=== PATIENT | male | born 1940 | race Caucasian/White ===

== ENCOUNTER 2020-02-23 09:09 | Observation (INO) | payer OTHER ==
[~2020-02-23] VITALS: Ht 185.4 cm; Wt 102.1 kg
[~2020-02-23 09:09] MED LIST: ALEVE220 M1 PO; ASPIR 8181 MG PO; EFFIENT10 MG PO; FISH OIL 1,001000 M2 PO; IMDUR 30 MG TAB30 M1 PO; LOPRESSOR25 PO; NITROSTAT0.3 MG SUBLING; OMEPRAZOLE20 M2 PO; OMEPRAZOLE40 MG PO; RAMIPRIL10 MG PO; SLEEP AID25 MG PO; VITAMIN B-12500 MCG PO; VITAMIN D-32000 UNIT PO; VITAMINC500 PO; VYTORIN 10-401 EACH PO
[2020-02-23 10:06] VITALS: BP 154/70
[2020-02-23 10:08] LABS: HEMATOCRIT 40.4 % (42.0-52.0); HEMOGLOBIN 13.8 gm/dL (14.0-18.0); MCH 30.6 pg (26.0-34.0); MCHC 34.1 g/dL (28.0-37.0); MCV 89.7 fL (80.0-100.0); MPV 6.9 fl. (7.2-11.1); RBC 4.51 mil/uL (4.50-6.00); RDW-CV 12.8 % (10.5-14.5); WBC 6.2 thou/uL (4.0-11.0)
[2020-02-23 10:22] LABS: ANION GAP 11 mmol/L (7-16); BUN 18 mg/dL (7-18); CALCIUM 8.2 mg/dL (8.5-10.1); CHLORIDE 106 mmol/L (98-107); CO2 25 mmol/L (21-32); CREATININE 1.1 mg/dL (0.6-1.3); GLUCOSE 118 mg/dL (70-99); POTASSIUM 4.2 mmol/L (3.5-5.1); SODIUM 142 mmol/L (136-145)
[2020-02-23] MEDS ORDERED: VITAMIN D31250 MC1 PO (10:23)
[2020-02-23] MEDS ORDERED: ZETIA10 MG PO (10:24)
[2020-02-23 10:26] LABS: ALBUMIN 3.7 g/dL (3.4-5.0); ALKALINE PHOSPHATASE 79 U/L (46-116); CHOLESTEROL 159 mg/dL (<200); HDL CHOLESTEROL 63 mg/dL (>40); LDL CHOLESTEROL 86 mg/dL (<100); SGOT 21 U/L (15-37); SGPT 40 U/L (30-65); TC:HDL 2.5 Ratio (Not establshd); TOTAL BILIRUBIN 0.5 mg/dL (<0.1-1.0); TOTAL PROTEIN 7.2 g/dL (6.4-8.2); TRIGLYCERIDE 51 mg/dL (<150); VLDL 10 mg/dL (<40)
[2020-02-23] MEDS ORDERED: NITROSTAT0.4 M1 PO (10:27)
[2020-02-23] MEDS ORDERED: LIPITOR40 MG PO (10:29)
[2020-02-23] MEDS ORDERED: CLARITIN10 M3 PO (10:30)
[2020-02-23 10:46] LABS: SERUM ASSESSMENT Clear
[2020-02-23 10:47] LABS: APTT 26.7 Seconds (25.0-31.3); PROTIME 10.4 Seconds (9.20-11.50)
[2020-02-23 16:05] VITALS: BP 154/70
--- NOTE | 2020-02-23 17:12 | EKG ---
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
--- NOTE | 2020-02-23 17:16 | EKG ---
[place] [address] ELECTROCARDIOGRAM REPORT Name: ELKIN MATTHEW Room: [address] M.R.#: [id number] Admission: 02/23/20 Attend Phys: Roxane Andrade Discharge: Date of : 44 Date of Service: 02/23/20 1516 Report #: [id number] THIS REPORT FOR: //name// [facility] Test Date: 2020-02-23 Test Time: 15:16:20 Pat Name: ELKIN MATTHEW Department: Room: [address] Gender: M Mental Health Aide: CS : 1940 Requested By: Amari Xavier Order Number: [id number] Daniel MD: Amari Xavier Measurements Intervals [place] Rate: 65 P: 72 [place]: 167 QRS: -86 QRSD: 145 T: 58 QT: 468 QTc: 487 Interpretive Statements Sinus rhythm Supraventricular bigeminy RBBB and LAFB Compared to ECG 02/23/2020 10:44:04 No significant changes Electronically Signed On 02-23-2020 17:16:03 CDT by Amari Xavier [email or web address] <ELECTRONICALLY SIGNED> By: Amari Xavier MD, [facility] 02/23/20 1716 1516 1516 Amari Xavier MD, [facility] /EPI
[2020-02-23 19:15] VITALS: BP 121/76
[2020-02-24 00:47] VITALS: BP 145/73
[2020-02-24 04:21] VITALS: BP 141/75
[2020-02-24 05:27] LABS: HEMATOCRIT 37.7 % (42.0-52.0); HEMOGLOBIN 13.2 gm/dL (14.0-18.0); MCH 30.7 pg (26.0-34.0); MCHC 34.9 g/dL (28.0-37.0); MPV 6.9 fl. (7.2-11.1); RBC 4.29 mil/uL (4.50-6.00); RDW-CV 12.7 % (10.5-14.5); WBC 6.9 thou/uL (4.0-11.0)
[2020-02-24 05:50] LABS: ALBUMIN 3.2 g/dL (3.4-5.0); CALCIUM 8.1 mg/dL (8.5-10.1); CREATININE 0.9 mg/dL (0.6-1.3); POTASSIUM 3.7 mmol/L (3.5-5.1); TOTAL BILIRUBIN 0.5 mg/dL (<0.1-1.0); TOTAL PROTEIN 6.3 g/dL (6.4-8.2)
[2020-02-24 05:51] LABS: TROPONIN-I LEVEL 1.23 ng/mL (<0.06)
[2020-02-24 07:49] VITALS: BP 141/65
[2020-02-24] MEDS ORDERED: EFFIENT10 MG PO (08:27)
[2020-02-24 09:41] VITALS: BP 141/65
--- NOTE | 2020-02-24 14:00 | CARD ---
[address] [address] CARDIAC CATH REPORT Name: ELKIN MATTHEW Room: [address] Kari M.R.#: [id number] Admission: 02/23/20 Attend Phys: Amari Xavier MD, Discharge: 02/24/20 Date of : 44 Report #: [id number] THIS REPORT FOR: //name// cc: Juanpablo Camilo MD, William MD ~ APPROVED REPORT Study performed: 02/23/2020 11:56:26 Patient Details Patient Status: In-Patient Room #: The patient is a 79 year-old male Event Personnel Amari Xavier User Interface Artist, Melyssa Mckeon RN Double Reamer Operator, Arleen Baron RTR Monitor, Kadi Ayers RTR Scrub Procedures Performed Art Access - R femoral artery, Left Heart Cath w/or w/o Coronaries LHC, TAMERA w/Atherectomy Single RCA DESATH, Hemostasis w/ Angioseal Indication Unstable angina Risk Factors Hypercholesterolemia, Hypertension Previous Procedures/Diagnoses Previous PCI Admission/Lab Medications/Medications given during procedure Nitroglycerin IC 200 mcg, Nitroglycerin IC 150 mcg, Angiomax IV 15 ml, Angiomax Drip IV 35.77 ml per hr, Effient PO 60 mg, Aspirin PO 162 mg Procedure Narrative The patient was brought electively to the Cardiac Catheterization Laboratory and was prepped and draped in a sterile manner. The right femoral groin area was infiltrated with 2% Lidocaine subcutaneous anesthesia. A 6F [place] sheath was inserted into the right femoral artery. Coronary angiography was performed using coronary diagnostic catheters. The right coronary system was [place] [address] CARDIAC CATH REPORT Name: ELKIN MATTHEW Room: [address] Sav#: [id number] Admission: 02/23/20 Attend Phys: Amari Xavier MD, Discharge: 02/24/20 Date of : 44 Report #: [id number] a 6F JR4 catheter. The left coronary system was accessed and visualized with a 6F JL4 catheter. The left ventricle was accessed and visualized with a 5F Straight Pigtail catheter. Left ventricular/Aortic Valve gradient assessed via catheter pullback. Left ventriculogram was performed in DIAL projection. Pre-demployment femoral angiogram was performed . Closure device was deployed with a 6 Fr Angioseal STS. The patient tolerated the procedure well and there were no complications associated with the procedure. There was no hematoma. Intraoperative Conscious Sedation Sedation start time: 12:25 Case end Time: 14:09 Fentanyl 75 mcg Versed 4 mg Fluoro Time: 33.4 minutes Dose: DAP 822190 cGycm2 4832 mGy Contrast Type and Amount: Visipaque 470 ml Diagnostic Cath Left Main 0% narrowing LAD 30% mid and distal LAD narrowing Circumflex 30% mid circumflex narrowing Right Coronary Large dominant vessel with 75% tubular proximal stenosis and 80% focal distal right coronary stenosis within a previously deployed stent just beyond the acute margin Left Ventriculography The left ventricle is normal in size with normal contractility. The left ventricular ejection fraction is estimated to be 55-60%. Left ventricular wall motion abnormalities are not present. There is no mitral insufficiency. Hemodynamics The aortic pressure is 140/68 mmHg with a mean of 95 mmHg. The left ventricular pressure is 141/1 mmHg with a mean of mmHg. The left ventricular end diastolic pressure is 18 mmHg. PCI Technique Lesion Anticoagulation was achieved with Angiomax. Patient was preloaded with Angiomax IV 15 ml. Percutaneous coronary intervention was performed on the proximal right coronary artery. The lesion stenosis prior to intervention was 75% with ANDREW 3 flow. A 6F JR 4.0 Guide Catheter was used to engage the right ostium. A BMW 190cm Interventional Guidewire was [place] [address] CARDIAC CATH REPORT Name: VIPULELKIN SMITH Room: [address]#: [id number] Admission: 02/23/20 Attend Phys: Amari Xavier MD, Discharge: 02/24/20 Date of : 44 Report #: [id number] BALLOON DILATION A Balloon catheter Trek RX 2.75 X 15 was inserted and inflated up to 12.00atm for 13seconds. Additional Inflation: 12.00atm for 11seconds. STENT DEPLOYMENT A drug-eluting stent Xience Adeline 3.23L64vn was inserted and inflated up to 14.00atm for 15seconds. Additional Inflation: 20.00atm for 14seconds. POST STENT DEPLOYMENT BALLOON DILATION A Balloon catheter NC Euphora 3.5x12 was inserted and inflated up to 13.00atm for 9seconds. Additional Inflation: 18.00atm for 15seconds. Additional Inflation: 20.00atm for 11seconds. Additional inflations for 20 efrain and 22 efrain. Final angiography reveals 10 % stenosis with ANDREW 3 flow. PCI Technique Lesion 2 Percutaneous Coronary Intervention was performed on the distal right coronary artery. Patient was preloaded with Angiomax IV 15 ml. The lesion stenosis prior to intervention was 80% with ANDREW 3 flow. A 6F JR 4.0 Guide Catheter was used to engage the right ostium. A BMW 190cm Interventional Guidewire was used to cross the lesion. Balloon Dilation A Balloon catheter NC Euphora 3.0 x 8 was inserted and inflated up to 10.00atm for 16seconds. Additional Inflation: 16.00atm for 12seconds. Additional Inflation: 18.00atm for 19seconds. A cutting balloon athrectomy catheter AngioSculpt PTCA 3.0 x 10mm was inserted and inflated up to 8 efrain for 16 seconds. Additional inflations: 10 efrain for 14 seconds; 11 efrain for 14 seconds. Stent Deployment A drug-eluting stent [place] RX Stent 3.0X12mm was inserted and inflated up to 10.00atm for 24seconds. Additional Inflation: 14.00atm for 13seconds. Additional Inflation: 15.00atm for 11seconds. Final angiography reveals 10 % stenosis with ANDREW flow. Conclusion 1. Significant coronary artery disease characterized by the following: A 75% tubular narrowing of the proximal portion of the dominant right [address] [address] CARDIAC CATH REPORT Name: ELKIN MATTHEW Room: [address] M.RCarmen#: [id number] Admission: 02/23/20 Attend Phys: Amari Xavier MD, Discharge: 02/24/20 Date of : 44 Report #: [id number] coronary artery with 80% focal distal right coronary in-stent restenosis just beyond the acute margin B 30% mid and distal LAD narrowings C 30% mid circumflex narrowing, this being a nondominant vessel 2. Normal left ventricular systolic function, estimated ejection fraction being 55 - 60% 3. Modest elevation of left ventricular end-diastolic pressure rest 4. Successful atherotomy/atherectomy with stenting of the distal right coronary artery at the site of 80% stenosis within a previously deployed stent with 10% residual narrowing 5. Successful PCI with deployment of drug-eluting stent at the site of 75% tubular proximal right coronary stenosis with 10% residual narrowing and ANDREW-3 flow the distal vessel Recommendations Cardiac Risk Reduction Program Aggressive Medical Therapy Medications Administered Aspirin (any) Prasugrel Diagnostic Cath Approved by: Amari Xavier MD Date/Time: 02/24/2020 13:58:25 <ELECTRONICALLY SIGNED> By: Amari Xavier MD, FACC 02/24/20 1400 1400 1400Amari Xavier MD, FACC /INF
--- NOTE | 2020-02-24 16:17 | EKG ---
[place] [address] ELECTROCARDIOGRAM REPORT Name: ELKIN MATTHEW Room: [address] M.R.#: [id number] Admission: 02/23/20 Attend Phys: oRxane Andrade Discharge: 02/24/20 Date of : 44 Date of Service: 02/24/20 0832 Report #: [id number] THIS REPORT FOR: //name// 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: : 1940 Requested By: Amari Xavier Order Number: [id number] Reading MD: Amari Xavier Measurements Intervals [place] Rate: 67 P: 61 DC: 142 QRS: -64 QRSD: 155 T: 8 QT: 460 QTc: 486 Interpretive Statements Sinus bradycardia Atrial premature complexes in couplets RBBB and LAFB Compared to ECG 02/23/2020 15:16:20 Sinus rate has slowed Electronically Signed On 02-24-2020 16:17:21 CDT by Amari Xavier [email or web address] <ELECTRONICALLY SIGNED> By: Amari Xavier MD, FAC 02/24/20 1617 0832 0832 Amari Xavier MD, [facility] /EPI
--- NOTE | 2020-02-24 16:29 | D ---
[address] [address] DISCHARGE SUMMARY Name: ELKIN MATTHEW Room: [address] Kari M.R.#: [id number] Admission: 02/23/20 Attend Phys: Amari Xavier MD, Discharge: 02/24/20 Date of : 44 Report #: [id number] THIS REPORT FOR: //name// cc: Juanpablo Camilo MD, William MD ~ THIS REPORT FOR: //name// CC: Amari Camilo DATE OF SERVICE: 02/24/2020 FINAL DISCHARGE DIAGNOSES: 1. Unstable angina. 2. Coronary artery disease. 3. Status post PCI of the right coronary artery. 4. Hyperlipidemia. 5. Hypertension. PROCEDURES: 02/23/2020 -- left heart catheterization, left ventriculography, selective coronary arteriography and percutaneous coronary intervention with atherectomy and stenting of the mid right coronary artery and stenting of the proximal right coronary artery with drug-eluting stents deployed at both sites. The patient is a very pleasant and active 79-year-old male. He has known coronary artery disease, status post prior PCIs to the right coronary artery. He presented with recurrent chest discomfort and associated shortness of breath with a pattern of increasing frequency and severity compatible with unstable angina. He has underlying hyperlipidemia and hypertension. In this context, I performed cardiac catheterization on 02/23/2020, which revealed tubular 75% proximal right coronary stenosis with 80% mid right coronary in-stent restenosis. There were no significant stenosis of the left main, LAD or circumflex. Left ventricular function was normal. Given this data, I elected to perform PCI of the right coronary artery, forming arthrotomy/atherectomy with deployment of drug-eluting stent at the right coronary artery just beyond the acute margin and placing a drug-eluting stent in the proximal right coronary artery with 0 and 10% residual narrowing respectively with ANDREW 3 flow of the distal vessel. Troponin purvi minimally to 1.23. The patient had no chest pain post-procedurally and ambulated in the hallways without difficulty with good hemostasis at the right [place] [address] DISCHARGE SUMMARY Name: ELKIN MATTHEW Room: [address] M.RCarmen#: [id number] Admission: 02/23/20 Attend Phys: Amari Xavier MD, Discharge: 02/24/20 Date of : 44 Report #: [id number] Laboratory on 02/23 revealed sodium 142, potassium 3.7, BUN 13, creatinine 0.9, hemoglobin 13.2, white blood cell count 6900 with 269,000 platelets. DISCHARGE MEDICATIONS: He was discharged to home on the following medications: Prasugrel or Effient 10 mg daily with a 60 mg jeannine-procedural dose, aspirin 81 mg daily, lisinopril 10 mg daily, Lipitor 40 mg daily, Zetia 10 mg daily, and p.r.n. sublingual nitroglycerin. I will plan to see him in followup on 03/27/2020 at [facility]. <ELECTRONICALLY SIGNED> By: Amari Xavier MD, FACC 02/24/20 1629 1233 1329Amari Xavier MD, FACC /nt
== END 2020-02-24 11:35 | disposition home or self-care (01) ==
LOC: M.CL 09:09 → M.TBA-CV 13:14 → M.2W 14:45
PROVIDERS: ADMIT Internal Medicine; ATTEND Internal Medicine
DX: I25.110 Atherosclerotic heart disease of native coronary artery with unstable angina pectoris (principal); E78.5 Hyperlipidemia, unspecified; I10 Essential (primary) hypertension; E78.00 Pure hypercholesterolemia, unspecified; Z79.82 Long term (current) use of aspirin; Z79.899 Other long term (current) drug therapy; Z20.828 Contact with and (suspected) exposure to other viral communicable diseases

== ENCOUNTER 2021-02-13 07:45 | Observation (INO) | payer OTHER ==
[~2021-02-13] VITALS: Ht 185.4 cm; Wt 102.5 kg
[2021-02-13] VITALS (16 sets, daily range): BP systolic 133–159; BP diastolic 55–73
--- NOTE | ~2021-02-13 | H ---
[address] [address] HISTORY AND PHYSICAL Name: ELKIN MATTHEW Room: [address] Kari M.R.#: [id number] Admission: 02/13/21 Attend Phys: Amari Xavier MD, Discharge: 02/14/21 Date of : 44 Report #: [id number] THIS REPORT FOR: cc: Juanpablo Camilo MD, William MD [facility],Medical Records Staff ~ Please refer to the History and Physical performed in the physician's office. By: [id number] Records Staff [facility] /TATO
--- NOTE | ~2021-02-13 | EKG ---
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
[~2021-02-13 07:45] MED LIST changes: -ASPIR 8181 MG PO; +CLARITIN10 M3 PO; +LIPITOR40 MG PO; +NITROSTAT0.4 M1 PO; +ST. JOSEPH ASPI81 M1 PO; +VITAMIN D31250 MC1 PO; +ZETIA10 MG PO
[2021-02-13 08:47] LABS: HEMATOCRIT 38.9 % (42.0-52.0); HEMOGLOBIN 12.9 gm/dL (14.0-18.0); MCH 29.6 pg (26.0-34.0); MCHC 33.1 g/dL (28.0-37.0); MCV 89.4 fL (80.0-100.0); RBC 4.35 mil/uL (4.50-6.00); WBC 5.6 thou/uL (4.0-11.0)
[2021-02-13 08:58] LABS: ANION GAP 10 mmol/L (7-16); BUN 29 mg/dL (7-18); CALCIUM 8.5 mg/dL (8.5-10.1); CHLORIDE 106 mmol/L (98-107); CO2 26 mmol/L (21-32); CREATININE 1.1 mg/dL (0.6-1.3); GLUCOSE 104 mg/dL (70-99); POTASSIUM 4.3 mmol/L (3.5-5.1); SODIUM 142 mmol/L (136-145)
[2021-02-13 08:59] LABS: APTT 25.8 Seconds (25.0-31.3); PROTIME 10.3 Seconds (9.20-11.50)
[2021-02-13 09:02] LABS: ALBUMIN 3.9 g/dL (3.4-5.0); ALKALINE PHOSPHATASE 72 U/L (46-116); CHOLESTEROL 163 mg/dL (<200); HDL CHOLESTEROL 71 mg/dL (>40); LDL CHOLESTEROL 83 mg/dL (<100); SERUM ASSESSMENT Clear; SGOT 22 U/L (15-37); SGPT 31 U/L (30-65); TC:HDL 2.3 Ratio (Not establshd); TOTAL BILIRUBIN 0.3 mg/dL (<0.1-1.0); TOTAL PROTEIN 7.2 g/dL (6.4-8.2); TRIGLYCERIDE 47 mg/dL (<150); VLDL 9 mg/dL (<40)
--- NOTE | 2021-02-13 11:49 | EKG ---
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: KIMMY WREN : 1940 Requested By: Amari Xavier Order Number: [id number] Daniel MD: Toño Torres Measurements Intervals [place] Rate: 63 P: 63 SD: 161 QRS: -70 QRSD: 152 T: 28 QT: 457 QTc: 468 Interpretive Statements Sinus rhythm RBBB and LAFB Compared to ECG 02/24/2020 08:32:58 Sinus bradycardia no longer present Atrial premature complex(es) no longer present Electronically Signed On 02-13-2021 11:49:42 CDT by Toño Torres [email or web address] <ELECTRONICALLY SIGNED> By: Toño Torres MD, FAC 02/13/21 1149 1135 1135 Toño Torres MD, [facility] /EPI
--- NOTE | 2021-02-13 21:10 | NUR ---
ASSUMED CARE OF PT AT 1150, RECEIVED PT FROM INSTRUMENT LENS INSPECTOR. REPORT FROM INSTRUMENT LENS INSPECTOR, RN. PT'S AT THE BEDSIDE. PT A&OX4, AFEBRILE, NO COMPLAINTS OF PAIN, PT BEDRESTED UNTIL 1630. PT'S LUNGS CTA, RA. PT IN SR WITH FREQUENT PACS AND A BBB, PALPABLE PULSES, NO EDEMA NOTED. PT HAD A CARDIAC CATH DONE AND A STENT PLACED TO THE PROXIMAL RCA. NORMOACTIVE BSX4, ABD SNT, PT CONTINENT OF BOWEL AND BLADDER. PT DOES HAVE A PRIETO PLACED FROM INSTRUMENT LENS INSPECTOR DUE TO DIFFICULT GROIN SEAL AND A FULL BLADDER CAUSING THE SURGICAL PUNCTURE SITE POTENTIAL ISSUES. PT'S LAST BM WAS ACCOUNTING CONSULTANT. NO OTHER SKIN ISSUES NOTED. R GROIN SITE IS INTACT, SOFT, NONTENDER, SMALL PETECHIAE AROUND BOTTOM SIDE TO SITE PRIOR TO ARRIVAL TO THIS UNIT. FOLLOWED INSTRUMENT LENS INSPECTOR PROTOCOL. VSS. CATH SITE CDI, NONTENDER, PALPABLE. UPON SHIFT CHANGE AND REPORT AT 1945, THE DRESSING HAD SOME SEROUSANGUINOUS FLUID THAT COVERED PART OF THE DRESSING. THIS RN OUTLINED THE SITE WITH MARKER AND HELD PRESSURE FOR 20MIN. THIS RN ASSESSED THE SITE ONE LAST TIME PRIOR TO LEAVING FOR THE END OF SHIFT AND THE SITE WAS UNCHANGED, NO DRAINAGE AROUND THE MARKER SITE. NIGHT RN TO MONITOR.
--- NOTE | 2021-02-13 21:49 | NUR ---
2134 DR Torres called new orders recieved.
--- NOTE | 2021-02-13 22:32 | NUR ---
The patient is alert. SR on the monitor with PAC and BBB. Gale intact and draining. RT groin dressing drainage noted. Extra pressure applied. Transfers with one assist.
[2021-02-14 01:30] VITALS: BP 137/72
[2021-02-14 03:09] VITALS: BP 131/75
[2021-02-14 04:55] LABS: HEMATOCRIT 37.8 % (42.0-52.0); HEMOGLOBIN 12.9 gm/dL (14.0-18.0); MCH 30.4 pg (26.0-34.0); MCV 89.4 fL (80.0-100.0); MPV 7.2 fl. (7.2-11.1); RBC 4.23 mil/uL (4.50-6.00); RDW-CV 12.8 % (10.5-14.5); WBC 7.1 thou/uL (4.0-11.0)
[2021-02-14 05:11] LABS: ALBUMIN 3.1 g/dL (3.4-5.0); CALCIUM 8.1 mg/dL (8.5-10.1); CK-MB MASS 2.4 ng/mL (<0.5-3.6); TOTAL BILIRUBIN 0.4 mg/dL (<0.1-1.0); TOTAL PROTEIN 6.3 g/dL (6.4-8.2)
[2021-02-14 05:47] VITALS: BP 112/61
[2021-02-14 07:45] VITALS: BP 145/66
--- NOTE | 2021-02-14 09:53 | CARD ---
[address] [address] CARDIAC CATH REPORT Name: ELKIN MATTHEW Room: [address] Kari M.R.#: [id number] Admission: 02/13/21 Attend Phys: Luis Xavier MD, Discharge: Date of : 44 Report #: [id number] THIS REPORT FOR: cc: Juanpablo Camilo MD, William MD Holkins, John M. MD [facility] ~ APPROVED REPORT Study performed: 02/13/2021 09:33:47 Patient Details Patient Status: Out-Patient Room #: The patient is a 80 year-old Event Personnel Dr. Luis Xavier MD: [employer] Instructor: Peyton Hansen RN RN: Alyse Nazario RN Monitor: Lolita Villalobos RN, CVRN-BC Scrub: SHERIN Mejía Procedures Performed Left Heart Cath w/wo Coronaries, TAMERA to Proximal Right Coronary Artery; Closure of Right Femoral with Angioseal Indication Unstable angina Risk Factors Hypercholesterolemia, Hypertension Admission/Lab Medications/Medications given during procedure Aspirin, Thrombin Inhibitors, Platelet Aff. Inhib. Procedure Narrative The patient was brought electively to the Cardiac Catheterization Laboratory and was prepped and draped in a sterile manner. The right femoral was infiltrated with 2% Lidocaine subcutaneous anesthesia. IV conscious sedation was used throughout procedure with appropriate monitoring and was performed in the presence of a registered nurse who was an independent trained observer other than the physician performing the procedure. A 6 Fr [place] sheath was inserted into the right Femoral artery. Coronary angiography was performed using coronary diagnostic catheters. The right [place] [address] CARDIAC CATH REPORT Name: ELKIN MATTHEW Room: [address] Kari Ang#: [id number] Admission: 02/13/21 Attend Phys: Luis Xavier MD, Discharge: Date of : 44 Report #: [id number] and visualized with a 6 Fr JR4 catheter. The left coronary system was accessed and visualized with a 6Fr JL4 catheter. The left ventricle was accessed and visualized with a pigtail catheter. Left ventricular/Aortic Valve gradient assessed . Left ventriculogram was performed in DIAL projection. Pre-demployment femoral angiogram was performed . Closure device was deployed with a 6 Fr Angioseal. The patient tolerated the procedure well and there were no complications associated with the procedure. There was no hematoma. Intraoperative Conscious Sedation Sedation start time: 9:53 Case end Time: 10:37 Fentanyl 25.0 mcg Versed 2.0 mg Fluoro Time: 12.1 minutes Dose: DAP 669414 cGycm2 1937 mGy Contrast Type and Amount: Omnipaque 320ml Coronary Angiography The patient's coronary anatomy is right dominant. Diagnostic Cath Left Main 0% narrowing LAD 30% proximal and mid LAD narrowing Circumflex Nondominant vessel with 20% proximal narrowing Right Coronary Large dominant vessel with 90% ostial proximal stenosis and widely patent mid and distal right coronary stents Left Ventriculography The left ventricle is normal in size with normal contractility. The left ventricular ejection fraction is estimated to be 60%. Left ventricular wall motion abnormalities are not present. There is no mitral insufficiency. Hemodynamics The aortic pressure is 144/65 mmHg with a mean of 78 mmHg. The left ventricular pressure is 135/2/19 mmHg with a mean of mmHg. The left ventricular end diastolic pressure is 22 mmHg. There was no gradient across the aortic valve upon pullback. PCI Technique Lesion Anticoagulation was achieved with Angiomax. Percutaneous coronary intervention was performed on the proximal right coronary artery. The lesion stenosis prior to intervention was 90% with ANDREW 3 flow. A 6Fr JR4 with sideholes Guide Catheter was used [place] [address] CARDIAC CATH REPORT Name: ELKIN MATTHEW [address] [id number] Admission: 02/13/21 Attend Phys: Luis Xavier MD, Discharge: Date of : 44 Report #: [id number] ostium. A 190cm BMW Interventional Guidewire was used to cross the lesion. BALLOON DILATION A Balloon catheter Trek 2.5x8 mm was inserted and inflated up to 16atm for 10seconds. Additional Inflation: 18atm for 10seconds. STENT DEPLOYMENT A drug eluting stent 2.5x12mm [place] was inserted and inflated up to 12atm for 7seconds. Additional Inflation: 15atm for 12seconds. proximal right coronary: 3.5 X 8MM Federico drug eluting stent placed and inflated up to 14 efrain for 7 sec Additonal inflation: 16 efrain for 8 sec Additional Inflation: 17 efrain for 7 sec. POST STENT DEPLOYMENT BALLOON DILATION A Balloon catheter [place] trek 3.5x8 was inserted and inflated up to 14atm for 7seconds. Additional Inflation: 16atm for 8seconds. Additional Inflation: 17atm for 7seconds. Final angiography reveals 0 % stenosis with ANDREW 3 flow. Conclusion Significant coronary artery disease characterized by the following: A 90% ostial proximal right coronary stenosis with widely patent mid and distal right coronary stents B 30% proximal and mid LAD narrowings C 20% narrowing the proximal portion of the nondominant circumflex 2. Normal left ventricular systolic function, estimated ejection fraction 60% 3. Moderate elevation of left ventricular end-diastolic pressure at rest 4. Successful PCI with deployment of two drug-eluting stents at the site of 90% ostial proximal right coronary stenosis with 0% residual narrowing and ANDREW-3 flow to [place] [address] CARDIAC CATH REPORT Name: ELKIN MATTHEW LUIS Room: [address] MCarmenRCarmen#: [id number] Admission: 02/13/21 Attend Phys: Luis Xavier MD, Discharge: Date of : 44 Report #: [id number] Recommendations Cardiac Risk Reduction Program Aggressive Medical Therapy Medications Administered Aspirin (any) Prasugrel Diagnostic Cath Approved by: Luis Xavier MD Date/Time: 02/14/2021 09:51:26 <ELECTRONICALLY SIGNED> By: Luis Xavier MD, [facility] 02/14/2153 2 0953Jocasandra Xavier MD, FAC /INF
[2021-02-14 10:49] VITALS: BP 145/66
--- NOTE | 2021-02-14 11:43 | NUR ---
ASSUMED CARE OF PT AT 0730. PT A&0X4, DENIES ANY PAIN OR SHORTNESS OF BREATH AT THIS TIME. TRACING SR ON THE PERSONAL INSURANCE ADVISOR. ON RA SAT UPPER 90'S. PT UP SBA. RIGHT GROIN CATH SITE-C/D/I NO HEMATOMA NOTED. AM ASSESSMENT CHARTED. MEDS PER MAR. DISCHARGE ORDERS RECEIVED. DISCHARGE INSTRUCTIONS, CARE NOTES AND FOLLOW UP APPTS GIVEN TO PT. PT COMMUNICATES UNDERSTANDING OF DISCHARGE TEACHING. IV AND PERSONAL INSURANCE ADVISOR REMOVED. PT DISCHARGED WITH ALL BELONGINGS AND PAPERWORK VIA WHEELCHAIR WITH NURSING STAFF TO SPOUSE OWN PERSONAL VEHICLE.
--- NOTE | 2021-02-14 15:56 | EKG ---
[place] [address] ELECTROCARDIOGRAM REPORT Name: ELKIN MATTHEW Room: [address] M.R.#: [id number] Admission: 02/13/21 Attend Phys: Roxane Andrade Discharge: 02/14/21 Date of : 44 Date of Service: 02/14/21 1124 Report #: [id number] THIS REPORT FOR: //name// [facility] ED Test Date: 2021-02-14 Test Time: 11:24:53 Pat Name: ELKIN MATTHEW Department: Room: [address] Gender: M Licensed Psychologist: KF : 1940 Requested By: Amari Xavier Order Number: [id number] Reading MD: Amari Xavier Measurements Intervals [place] Rate: 57 P: 56 DC: 136 QRS: -64 QRSD: 149 T: 17 QT: 442 QTc: 431 Interpretive Statements Sinus rhythm Supraventricular bigeminy RBBB and LAFB Compared to ECG 02/13/2021 11:35:58 Atrial premature complex(es) now present Electronically Signed On 02-14-2021 15:55:59 CDT by Amari Xavier [email or web address] <ELECTRONICALLY SIGNED> By: Amari Xavier MD, [facility] 02/14/21 1555 1124 1124 Amari Xavier MD, FAC /EPI
--- NOTE | 2021-02-14 16:18 | D ---
[address] [address] DISCHARGE SUMMARY Name: ELKIN MATTHEW Room: [address] Kari Ang#: [id number] Admission: 02/13/21 Attend Phys: Amari Xavier MD, Discharge: 02/14/21 Date of : 44 Report #: [id number] THIS REPORT FOR: cc: Juanpablo Camilo MD, William MD Holkins,Amari Courtney MD [facility] ~ DATE OF DISCHARGE: 02/14/2021 FINAL DISCHARGE DIAGNOSES: 1. Unstable angina. 2. Coronary artery disease. 3. Hypertension. 4. Hyperlipidemia. 5. Status post PCI to the proximal right coronary artery. PROCEDURES: On 02/13/2021 -- left heart catheterization, left ventriculography, selective coronary arteriography, and percutaneous coronary intervention with deployment of 2 drug-eluting stents at the site of ostial proximal 90% right coronary stenosis. HOSPITAL COURSE: The patient is a very pleasant and active 80-year-old male with a history of coronary artery disease status post multiple PCIs to the right coronary artery. He has underlying hypertension and hyperlipidemia. 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 There has been an increase in frequency and severity of episodes. Given this data, I elected to proceed with cardiac catheterization on 02/13/2021. That study revealed significant coronary artery disease with 90% ostial proximal right coronary stenosis with widely patent right coronary stents in the mid and distal portion. There was 30% mid LAD and 20% obtuse marginal narrowing of the nondominant circumflex. I proceeded with PCI, deploying 2 drug-eluting stents in the ostial proximal right coronary artery with 0% residual narrowing and ANDREW 3 flow to the distal vessel. The patient did well post-procedurally and ambulated in the hallways without difficulty. There was good hemostasis at the right femoral site of catheterization. LABORATORY DATA: Revealed a sodium 141, potassium 4.0, BUN 25, creatinine 1.0, glucose 105, hemoglobin 12.9, white blood cell count 7100 with 259,000 platelets. Cholesterol 163, triglycerides 47, HDL 71, LDL 83. DISCHARGE MEDICATIONS: The patient is discharged to home in stable condition on the following medications: Aspirin 81 mg daily, vitamin B12 500 [place] [id number] DISCHARGE SUMMARY Name: VIPULELKIN SMITH Room: [address] Kari Ang#: [id number] Admission: 02/13/21 Attend Phys: Amari Xavier MD, Discharge: 02/14/21 Date of : 44 Report #: [id number] 1000 mcg daily, ramipril 5 mg daily, omeprazole 40 mg daily, Zetia 10 mg at bedtime, p.r.n. sublingual nitroglycerin, atorvastatin 40 mg daily and prasugrel or Effient 10 mg daily. I will plan to see the patient in followup in 4 weeks. Therefore, the patient is discharged home in stable condition on the aforementioned medications with followup as described above. <ELECTRONICALLY SIGNED> By: Amari Xavier MD, [facility] 02/14/21 1618 0813 [id number] Xavier MD, FAC /nt
== END 2021-02-14 11:47 | disposition home or self-care (01) ==
LOC: M.CL 07:45 → M.TBA-CV 10:21 → M.2W 11:54
PROVIDERS: ADMIT Internal Medicine; ATTEND Internal Medicine
DX: I25.110 Atherosclerotic heart disease of native coronary artery with unstable angina pectoris (principal); E78.5 Hyperlipidemia, unspecified; I10 Essential (primary) hypertension; Z20.822 Contact with and (suspected) exposure to COVID-19; Z79.899 Other long term (current) drug therapy